=== PATIENT | female | born 1980 | race Caucasian/White ===

== ENCOUNTER → 2020-07-03 16:38 | Outpatient (CLI) | payer OTHER, SELFPAY ==
[2020-07-03 17:48] LABS: Add Manual Diff / Slide Review NO; Basophils Absolute Auto 0 /uL (0-100); Basophils Percent Auto 0.4 % (0-2); Eosinophils Absolute Auto 200 /uL (0-450); Eosinophils Percent Auto 1.6 % (2-4); Hematocrit 39.3 % (36-46); Hemoglobin 13.1 g/dL (12.0-16.0); Lymphocytes Absolute Auto 2200 /uL (1100-4500); Lymphocytes Percent Auto 18.5 % (25-40); Mean Corpuscular HGB Conc 33.4 % (30-36); Mean Corpuscular Hemoglobin 29.9 PG (26-34); Mean Corpuscular Volume 89.5 fL (80-100); Monocytes Absolute Auto 700 /uL (0-900); Monocytes Percent Auto 6.2 % (3-14); Neutrophils Absolute Auto 8600 /uL (1500-7000); Neutrophils Percent Auto 73.3 % (50-75); Platelet Count 265 X10^3/uL (150-400); Red Blood Cell Count 4.39 X10^6/uL (4.0-5.2); Red Cell Distribution Width 13.5 % (11.6-14.8); White Blood Cell Count 11.7 X10^3/uL (4.5-11.0)
[2020-07-03 18:06] LABS: Alanine Aminotransferase 32 IU/L (<35); Albumin 4.3 g/dL (3.5-5.0); Albumin Globulin Ratio 1.4 (1.0-2.8); Alkaline Phosphatase 69 U/L (38-126); Aspartate Aminotransferase 41 IU/L (14-36); BUN Creatinine Ratio 24.6 (6-22); Bilirubin Total 1.3 mg/dL (0.2-1.3); Blood Urea Nitrogen 14 mg/dL (7-17); Calcium 9.5 mg/dL (8.4-10.2); Carbon Dioxide 25 mmol/L (22-32); Chloride 103 mmol/L (98-107); Estimated Glomerular Filt Rate > 60.0 mL/min (>60); Glucose 101 mg/dL (70-100); HEMOLYSIS 29 (0-50); Potassium 4.1 mmol/L (3.4-5.1); Sodium 137 mmol/L (137-145); Total Protein 7.3 g/dL (6.3-8.2)
[2020-07-03 18:33] LABS: Thyroid Stimulating Hormone 4.19 uIU/mL (0.47-4.68)
== END ==
PROVIDERS: Family Provider Family Medicine; PCP Family Medicine; Referring Provider Registered Nurse; Visit Provider Registered Nurse
DX: R53.83 Other fatigue (principal); Z78.9 Other specified health status
CPT/HCPCS: 36415; 80053; 84443; 85025

== ENCOUNTER → 2020-08-15 15:29 | Outpatient (CLI) | payer OTHER, SELFPAY ==
[2020-08-15 16:12] LABS: COVID19 -Nasal RAPID Negative (Negative)
== END ==
PROVIDERS: Family Provider Family Medicine; PCP Family Medicine; Visit Provider Student in an Organized Health Care Education/Training Program
DX: R06.02 Shortness of breath (principal); Z20.822 Contact with and (suspected) exposure to COVID-19
CPT/HCPCS: 87635

== ENCOUNTER 2020-08-15 15:45 | Emergency (ER) | payer OTHER, SELFPAY ==
--- NOTE | 2020-08-15 15:55 | DI.RAD.S_ITS ---
PROCEDURE: XR CHEST 1V INDICATIONS: chest pain TECHNIQUE: One view of the chest was acquired. COMPARISON: None. FINDINGS: Surgical changes and devices: None. Lungs and pleura: Lungs are clear. No pleural effusions or pneumothorax. Mediastinum: Mediastinal contours appear normal. Heart size is normal. Bones and chest wall: No suspicious bony lesions. Overlying soft tissues appear unremarkable. IMPRESSION: No acute cardiopulmonary pathology. Dictated by: Kannan Gonzalez M.D. on 08/15/2020 at 16:15 Approved by: Kannan Gonzalez M.D. on 08/15/2020 at 16:15
[2020-08-15 15:57] VITALS: BP 177/117; PULSE 56; RESP 18; TEMP 37.2; O2SAT 100
[2020-08-15 16:26] LABS: Add Manual Diff / Slide Review NO; Basophils Absolute Auto 100 /uL (0-100); Basophils Percent Auto 0.8 % (0-2); Eosinophils Absolute Auto 300 /uL (0-450); Eosinophils Percent Auto 2.9 % (2-4); Hematocrit 38.7 % (36-46); Lymphocytes Absolute Auto 2100 /uL (1100-4500); Lymphocytes Percent Auto 22.5 % (25-40); Mean Corpuscular HGB Conc 33.5 % (30-36); Mean Corpuscular Hemoglobin 29.7 PG (26-34); Mean Corpuscular Volume 88.8 fL (80-100); Monocytes Absolute Auto 500 /uL (0-900); Monocytes Percent Auto 5.8 % (3-14); Neutrophils Absolute Auto 6400 /uL (1500-7000); Platelet Count 269 X10^3/uL (150-400); Red Blood Cell Count 4.36 X10^6/uL (4.0-5.2); Red Cell Distribution Width 13.1 % (11.6-14.8); White Blood Cell Count 9.4 X10^3/uL (4.5-11.0)
[2020-08-15 16:39] LABS: Alanine Aminotransferase 39 IU/L (<35); Albumin 4.2 g/dL (3.5-5.0); Albumin Globulin Ratio 1.5 (1.0-2.8); Alkaline Phosphatase 49 U/L (38-126); Aspartate Aminotransferase 34 IU/L (14-36); BUN Creatinine Ratio 23.1 (6-22); Bilirubin Total 1.5 mg/dL (0.2-1.3); Blood Urea Nitrogen 12 mg/dL (7-17); Calcium 9.4 mg/dL (8.4-10.2); Carbon Dioxide 28 mmol/L (22-32); Chloride 105 mmol/L (98-107); Creatine Kinase 104 U/L (30-135); Estimated Glomerular Filt Rate > 60.0 mL/min (>60); Globulin 2.8 g/dL (1.7-4.1); Glucose 103 mg/dL (70-100); HEMOLYSIS < 15 (0-50); Lipase 54 U/L (23-300); Potassium 3.8 mmol/L (3.4-5.1); Sodium 138 mmol/L (137-145)
[2020-08-15 16:50] LABS: Troponin I < 0.012 ng/mL (0.01-0.034)
[2020-08-15 16:54] LABS: CKMB % Relative Index 0.3 % (1.5-5.0); Creatine Kinase MB 0.26 ng/mL (<2.37)
[2020-08-15 19:20] VITALS: PULSE 53; RESP 12; O2SAT 99
--- NOTE | 2020-08-15 19:28 | ED.CHESTPAIN ---
HPI - Chest Pain General Chief Complaint: Chest Pain Stated Complaint: SOB, chest pain, dizziness Time Seen by Provider: 08/15/20 19:20 Source: patient Mode of arrival: Ambulatory History of Present Illness HPI narrative: 39-year-old female who admits being a heavy drinker. States she quit drinking approximately 1 week ago in order to partake in a detox and she went approximately 1 week without drinking. Then over the weekend she started drinking again. She was also outside during the heat and stated that she got dehydrated. She states that since that time she has had some shortness of breath and dizziness and generally not feeling very well. She also received her 2nd COVID shot during this period of time as well. Related Data Allergies Allergy/AdvReac Type Severity Reaction Status Date / Time amoxicillin Allergy Mild rash and Verified 07/31/20 15:09 itching Review of Systems Constitutional Constitutional: Reports fatigue, Denies fever(s) and Reports malaise Cardiovascular Cardiovascular: Reports chest pain and Reports dyspnea Respiratory Respiratory: Reports dyspnea Gastrointestinal Gastrointestinal: Reports abdominal pain, Reports nausea and Denies vomiting Musculoskeletal Musculoskeletal: Reports system reviewed and no additional complaints, except as documented Integumentary/Breasts Skin/Breast: Reports system reviewed and no additional complaints, except as documented Neurologic Neurologic: Reports system reviewed and no additional complaints, except as documented Endocrine Endocrine: Reports fatigue Hematologic/Lymphatic On Anticoagulants: No Patient History Medical History Cervical cancer screening Surgical History Status post delivery (07/25/04) Status post delivery (04/21/07) Family History Mother Age: 67 Diabetes mellitus Social History Smoking Status: Never smoker Smoking Status: Never smoker tobacco type: vaping alcohol intake frequency: other Substance Use Type: does not use Exam Initial Vital Signs Initial Vital Signs: Vital Signs Temperature 98.9 F 08/15/20 15:57 Pulse Rate 56 L 08/15/20 15:57 Respiratory Rate 18 08/15/20 15:57 Blood Pressure 177/117 H 08/15/20 15:57 Pulse Oximetry 100 08/15/20 15:57 Const General: cooperative and comfortable HENMT Head: normal to inspection and normocephalic Eyes General: appearance normal, both eyes and all related structures Resp Effort & Inspection: normal respiratory effort Cardio Rate: regular rate Rhythm: regular rhythm GI Inspection: normal to inspection Palpation: soft Skin General: no rashes or lesions noted Neuro General: patient alert, patient awake and patient oriented x3 Extrem General: normal to inspection and capillary refill normal Psych Appearance: grossly normal and well kempt Course Orders Ordered: Discontinued Medications Acetaminophen (Acetaminophen 325 Mg Tablet) 650 mg PO NOW ONE Stop: 08/15/20 19:29 Last Admin: 08/15/20 19:34 Dose: 650 mg Documented by: KILLIAN Sodium Chloride (Normal Saline 0.9%) 1,000 mls @ 1,000 mls/hr IV BOLUS ONE Stop: 08/15/20 20:27 Last Infusion: 08/15/20 22:09 Dose: 0 mls/hr Documented by: Admin: 08/15/20 19:35 Dose: 1,000 mls/hr Documented by: KILLIAN Vital Signs Vital signs: Vital Signs - 8 hr 08/15/20 19:20 08/15/20 19:30 08/15/20 20:00 Pulse Rate 53 L 48 L 47 L Respiratory Rate 12 13 15 Blood Pressure Pulse Oximetry 99 98 96 08/15/20 22:26 Pulse Rate 44 L Respiratory Rate 16 Blood Pressure 157/93 H Pulse Oximetry 100 MDM - Chest Pain Lab Data Attestation: I reviewed the patient's lab results. Result diagrams: 08/15/20 16:23 08/15/20 16:23 Labs: Lab Results 08/15/20 08/15/20 Range/Units 16:23 16:23 WBC 9.4 (4.5-11.0) X10^3/uL RBC 4.36 (4.0-5.2) X10^6/uL Hgb 13.0 (12.0-16.0) g/dL Hct 38.7 (36-46) % MCV 88.8 (80-100) fL MCH 29.7 (26-34) PG MCHC 33.5 (30-36) % RDW 13.1 (11.6-14.8) % Plt Count 269 (150-400) X10^3/uL Neut % (Auto) 68.0 (50-75) % Lymph % (Auto) 22.5 L (25-40) % [place] % (Auto) 5.8 (3-14) % Eos % (Auto) 2.9 (2-4) % Baso % (Auto) 0.8 (0-2) % Neut # (Auto) 6400 (3937-9787) /uL Lymph # (Auto) 2100 (1130-5355) /uL [place] # (Auto) 500 (0-900) /uL Eos # (Auto) 300 (0-450) /uL Baso # (Auto) 100 (0-100) /uL Sodium 138 (137-145) mmol/L Potassium 3.8 (3.4-5.1) mmol/L Chloride 105 (98-107) mmol/L Carbon Dioxide 28 (22-32) mmol/L BUN 12 (7-17) mg/dL Creatinine 0.52 (0.52-1.04) mg/dL Estimated GFR > 60.0 (>60) mL/min BUN/Creatinine Ratio 23.1 H (6-22) Glucose 103 H (70-100) mg/dL Calcium 9.4 (8.4-10.2) mg/dL Total Bilirubin 1.5 H (0.2-1.3) mg/dL AST 34 (14-36) IU/L ALT 39 H (<35) IU/L Alkaline Phosphatase 49 (38-126) U/L Total Creatine Kinase 104 (30-135) U/L CK-MB (CK-2) 0.26 (<2.37) ng/mL CK-MB (CK-2) Rel Index 0.3 L (1.5-5.0) % Troponin I < 0.012 (0.01-0.034) ng/mL Total Protein 7.0 (6.3-8.2) g/dL Albumin 4.2 (3.5-5.0) g/dL Globulin 2.8 (1.7-4.1) g/dL Albumin/Globulin Ratio 1.5 (1.0-2.8) Lipase 54 (23-300) U/L Point of Care Testing Test Results Negative Urine Dip Bedside Urine Glucose Negative Bedside Urine Bilirubin - Negative Bedside Urine Ketone + 15 Urine Specific [place] 1.030 Bedside Urine Occult Blood - Negative Bedside Urine pH 6.0 Bedside Urine Protein - Negative Bedside Urine Urobilinogen - Negative Bedside Urine Nitrite + Positive Bedside Urine Leukocytes - Negative Esterase Imaging Data Chest x-ray: Radiologist's Impression: [address] [id number] ReportSigned Patient: Estefani Howell#: [id number]: 1980Acct:[id number]/Sex: 39 / FDate of Service: 08/15/20Loc: EDAccession Number: [id number] Procedure: XR chest 1V Ordering Provider: Daisy Garcia D.O. PROCEDURE: XR CHEST 1V INDICATIONS: chest pain TECHNIQUE: One view of the chest was acquired. COMPARISON: None. FINDINGS: Surgical changes and devices: None. Lungs and pleura: Lungs are clear. No pleural effusions or pneumothorax. Mediastinum: Mediastinal contours appear normal. Heart size is normal. Bones and chest wall: No suspicious bony lesions. Overlying soft tissues appear unremarkable. IMPRESSION: No acute cardiopulmonary pathology. Dictated by: Kannan Gonzalez M.D. on 08/15/2020 at 16:15 Approved by: Kannan Gonzalez M.D. on 08/15/2020 at 16:15 ECG Data Attestation: I personally reviewed and interpreted this ECG as follows: Interpretation: Sinus bradycardia Ventricular rate of 55 Normal axis Normal QRS Normal QTC No ST T wave changes MDM Narrative Medical decision making narrative: Patient's labs are unremarkable, chest x-ray is unremarkable, EKG is unremarkable, has an unremarkable exam. She has no signs of alcohol withdrawal. She stated that she did feel better after the Tylenol and the fluids. Her headache is improved. I feel we can hold on further workup for now. She was given return precautions and follow-up instructions. She expressed understanding agreement. Discharge Plan Departure Patient Disposition: Home Clinical Impression: Headache Instructions: DI for Headache Activity Restrictions/Additional Instructions: I recommend that you continue to take your blood pressures at home and if they remain consistently elevated contact your primary doctor for follow-up to discuss potentially starting on any medications. Recommend that you continue to increase your fluid intake. You can take Tylenol for any headaches. Return to the emergency department for any new or worsening symptoms Referrals: Heather Aponte DO [Primary Care Provider] -
[2020-08-15 19:30] VITALS: PULSE 48; RESP 13; O2SAT 98
[2020-08-15] MEDS: ACETAMINOPHEN 325 MG TABLET 650 MG PO (19:34)
[2020-08-15] MEDS: SODIUM CHLORIDE 0.9% 1,000 ML 1000 ML IV (19:35)
[2020-08-15 20:00] VITALS: PULSE 47; RESP 15; O2SAT 96
[2020-08-15 22:26] VITALS: BP 157/93; PULSE 44; RESP 16; O2SAT 100
== END 2020-08-15 22:33 | disposition home or self-care (01) ==
PROVIDERS: Emergency Medicine; Emergency Provider Emergency Medicine; Family Provider Family Medicine; PCP Family Medicine
DX: R51.9 Headache, unspecified (principal); R07.9 Chest pain, unspecified; R42 Dizziness and giddiness; R06.02 Shortness of breath; R11.0 Nausea; Z20.822 Contact with and (suspected) exposure to COVID-19
CPT/HCPCS: 36415; 71045; 80053; 81003; 81025; 82550; 82553; 83690; 84484; 85025; 87635; 93005; 96360; 96361; 99284

== ENCOUNTER → 2022-12-22 15:46 | Outpatient (CLI) | payer OTHER, SELFPAY ==
--- NOTE | 2022-12-22 15:48 | DI.RAD.S_ITS ---
PROCEDURE: XR HIP W PEL IF DONE RT 2V INDICATIONS: Right hip pain TECHNIQUE: AP pelvis with lateral view(s) of the right hip(s). COMPARISON: None. FINDINGS: Bones: No fractures or dislocations. Pelvic ring appears intact. No suspicious bony lesions. Soft tissues: The visualized bowel gas pattern is normal. No suspicious soft tissue calcifications. IUD in expected position. IMPRESSION: Normal right hip. Dictated by: Nga Tobar M.D. on 12/23/2022 at 0:44 Approved by: Nga Tobar M.D. on 12/23/2022 at 0:44
== END ==
PROVIDERS: Family Provider Family Medicine; PCP Family Medicine; Referring Provider Family Medicine; Visit Provider Family Medicine
DX: M25.551 Pain in right hip (principal)
CPT/HCPCS: 73502

== ENCOUNTER → 2024-10-26 15:41 | Outpatient (CLI) | payer OTHER, SELFPAY ==
--- NOTE | 2024-10-26 15:44 | DI.MRI.S_ITS ---
PROCEDURE: MR HIP RT W CON INDICATIONS: Hip pain, r/o labral tear TECHNIQUE: After the administration of 10 mL of dilute intra-articular Gadolinium contrast, coronal STIR of the bony pelvis; coronal and oblique axial T1 spin echo with fat saturation, axial T2 fast spin echo with fat saturation, sagittal T1 spin echo with and without fat saturation of the involved hip. COMPARISON: [facility], CR, XR HIP W PEL IF DONE RT 2V, 12/22/2022, 16:02. FINDINGS: Image quality: Excellent. Right Hip (small FOV): Intact articular surfaces. Smoothly marginated cleft in the anterior superior labrum at 12-1 o'clock (series 4, image 10) may represent partial chondrolabral separation versus a sublabral sulcus. No anterior labral tear. No posterior labral tear. Lumbar spine: Unremarkable lumbar spine. Sacroiliac joints/pubic symphysis: Bilateral, well-marginated come of periarticular cystic change adjacent to the inferior synovial sacroiliac joints. Tendons/bursae: Moderate insertional tendinosis of the right gluteus medius. No trochanteric bursitis. Unremarkable right gluteus minimus insertion. Mild insertional tendinosis of iliopsoas with iatrogenic fluid tracking along the muscle bellies. No bursitis. The right hamstring origin is intact. Muscles: Unremarkable. Neurovascular: Unremarkable. Pelvic viscera: Unremarkable, non-dedicated study. Subcutaneous tissues: Unremarkable. IMPRESSION: 1. Smoothly marginated likely sublabral sulcus in the anterior superior labrum versus less likely chondrolabral separation, recommend correlation with physical exam findings. 2. Bilateral, left greater than right, periarticular cystic change adjacent to the synovial sacroiliac joints. These findings can be seen with sacroiliitis. If there are clinical symptoms of sacroiliitis, consider sacroiliac joint MRI. 3. 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 Dictated by: Corona Herrmann M.D. on 10/27/2024 at 8:26 Approved by: Corona Herrmann M.D. on 10/27/2024 at 8:34
--- NOTE | 2024-10-26 15:44 | DI.RAD.S_ITS ---
PROCEDURE: FL ARTHROGRAM HIP RT INDICATIONS: Hip pain, evaluate for labral tear TECHNIQUE: The indications, alternatives, benefits, risks, and complications of the procedure were explained to the patient. Written informed consent was obtained and placed in the chart. The hip was examined fluoroscopically with the legs fixed in slight internal rotation, and a site for needle placement chosen for entry into the hip joint from an anterior approach. Care was taken to locate the common femoral artery and vein beforehand. The skin was prepped and draped in a sterile fashion, and 1% Lidocaine infiltrated from skin down to joint capsule. A spinal needle was inserted into the joint, and a small amount of iodinated contrast media injected to confirm intra-articular placement of the needle tip. This was followed by approximately 10 mL dilute solution of a gadolinium containing MR contrast agent. The needle was removed and a dressing was applied. The patient was given postprocedural instructions and sent to the MR suite for imaging. COMPARISON: None. FINDINGS: A single fluoroscopic spot image demonstrates intra-articular location of injected iodinated contrast. There is small focus of iodinated contrast pooling along the anterior capsule. IMPRESSION: Successful fluoroscopically guided administration of dilute Gadolinium solution into the hip joint for MR arthrogram. Dictated by: Corona Herrmann M.D. on 10/26/2024 at 16:37 Approved by: Corona Herrmann M.D. on 10/26/2024 at 16:37
[2024-10-26] MEDS: LIDOCAINE 1% 20 ML INJ (16:52)
[2024-10-26] MEDS: SODIUM CHLORIDE 0.9 % 20 ML VIAL IV (16:53)
== END ==
LOC: RAD 15:43
PROVIDERS: Family Provider Family Medicine; PCP Family Medicine; Referring Provider Family Medicine; Visit Provider Family Medicine
DX: M25.551 Pain in right hip (principal); M67.951 Unspecified disorder of synovium and tendon, right thigh
CPT/HCPCS: 27093; 73525; 73722; A9579; Q9967